=== PATIENT | female | born 1950 ===

== ENCOUNTER 2017-10-17 09:22 | Day surgery (SDC) | payer MEDICARE ==
[~2017-10-17] VITALS: Ht 167.6 cm; Wt 94.1 kg
[~2017-10-17 09:22] MED LIST: AMLO10 PO; HYDCHL12.5 PO; METO25ER PO; MICROZIDE12.5 MG PO; TRAM50 PO
== END 2017-10-17 12:14 | disposition home or self-care (01) ==
LOC: ORSCSDS 09:22
PROVIDERS: Internal Medicine Gastroenterology
PROC: 0DJD8ZZ Inspection of Lower Intestinal Tract, Via Natural or Artificial Opening Endoscopic (ICD-10-PCS; principal; 2017-10-17 10:45)
DX: Z12.11 Encounter for screening for malignant neoplasm of colon (principal); K57.30 Diverticulosis of large intestine without perforation or abscess without bleeding; K64.8 Other hemorrhoids; Z86.010 Personal history of colon polyps; I10 Essential (primary) hypertension; Z79.899 Other long term (current) drug therapy
CPT/HCPCS: J2405; J7120

== ENCOUNTER 2023-11-06 05:58 | Day surgery (SDC) | payer MEDICARE ==
[~2023-11-06] VITALS: Ht 167.6 cm; Wt 99.3 kg
[2023-11-06] VITALS (16 sets, daily range): BP systolic 100–197; BP diastolic 56–84
[~2023-11-06 05:58] MED LIST changes: +ATOR20 PO; +BISA10S; +CLARITIN5 MG PO; +DULO60 PO; +MELO7.5 PO; +Prinivil10 MG PO; +VITAMIN D310 MC4 PO
[2023-11-06] MEDS ORDERED: Acetaminophen 500 MG Tab PO SCH ×2 (06:15→08:00)
[2023-11-06] MEDS ORDERED: Vancomycin HCL 1,000 MG in NS 250 ML IV SCH ×3 (06:15→19:00)
[2023-11-06] MEDS ORDERED: Ropivacaine 0.5% HCl/Pf 123.125 MG,EPINEPHrine HCL 0.25 MG,Ketorolac Tromethamine 15 MG... INFIL SCH (06:15)
[2023-11-06] MEDS ORDERED: Lactated Ringer's 1,000 ML IV SCH ×2 (06:15→07:10)
[2023-11-06] MEDS ORDERED: OxyCODONE HCL 10 MG TABCR PO SCH (06:15)
[2023-11-06] MEDS ORDERED: Chlorhexidine Mouth Care 15 ML UDC MT SCH (06:15)
[2023-11-06] MEDS ORDERED: Tranexamic Acid 100 ML IV SCH (06:15)
[2023-11-06] MEDS ORDERED: CeFAZolin Sodium 2,000 MG in NS 100 ML IV SCH ×2 (06:15→16:00)
--- NOTE | 2023-11-06 06:53 | NUR ---
Ambulatory in Day Surgery History, Chart, Medications and Allergies reviewed before start of procedure. Pre-Op teaching done. Pt verbalizes understanding.
[2023-11-06] MEDS ORDERED: Magnesium Hydroxide Conc 10 ML UDC PO PRN (07:10)
[2023-11-06] MEDS ORDERED: HYDROmorphone HCl/Pf 1MG SYR IV PRN (07:10)
[2023-11-06] MEDS ORDERED: Prochlorperazine Edisylate 10 mg Vial IV PRN (07:15)
[2023-11-06] MEDS ORDERED: Ondansetron HCl 2 MG / ML 2ML Vial IV PRN ×2 (07:15→08:50)
[2023-11-06] MEDS ORDERED: Promethazine HCl 25 MG Tab PO PRN (07:15)
[2023-11-06] MEDS ORDERED: Metoclopramide HCl 5MG / ML 2ML Vial IV PRN (07:15)
[2023-11-06] MEDS ORDERED: OxyCODONE HCL 5 MG TAB PO PRN ×2 (07:15)
[2023-11-06] MEDS ORDERED: DiphenhydrAMINE HCL 25 MG Cap PO PRN (07:15)
[2023-11-06] MEDS ORDERED: Bisacodyl 10 MG Supp PR PRN (07:20)
[2023-11-06] MEDS ORDERED: VANCOMYCIN HCL IV SCH (07:25)
[2023-11-06] MEDS ORDERED: Vancomycin HCl 1000 MG ADDvantage XX ONE (07:30)
[2023-11-06] MEDS ORDERED: FentaNYL Citrate 50 MCG/ML 2 ML Injection ONE (07:35)
[2023-11-06] MEDS ORDERED: Midazolam HCl 1MG / ML 2ML Vial ONE ×2 (07:35→08:51)
[2023-11-06] MEDS ORDERED: Dexamethasone Sod Phos 10 MG/ML 1ML VIAL ONE (08:01)
[2023-11-06] MEDS ORDERED: Ketamine HCl 100 MG / ML 5ML Vial ONE (08:27)
[2023-11-06] MEDS ORDERED: FentaNYL Citrate 50 MCG/ML 2 ML Injection IV PRN ×3 (08:50)
[2023-11-06] MEDS ORDERED: Metoprolol Succinate 25 MG TABCR PO SCH (09:00)
[2023-11-06] MEDS ORDERED: Loratadine 10 MG Tab PO SCH (09:00)
[2023-11-06] MEDS ORDERED: Cholecalciferol 1000 Unit Tablet (=25MCG) PO SCH (09:00)
[2023-11-06] MEDS ORDERED: Lisinopril 20 MG Tab PO SCH (09:00)
[2023-11-06] MEDS ORDERED: Docusate Sodium 100 MG Cap PO SCH (09:00)
[2023-11-06] MEDS ORDERED: Atorvastatin 10 MG Tab PO SCH (09:00)
[2023-11-06] MEDS ORDERED: ePHEDrine Sulfate 50 MG/ML 1ML Injection ONE (09:07)
[2023-11-06] MEDS ORDERED: Ondansetron HCl 2 MG / ML 2ML Vial ONE (09:34)
[2023-11-06] MEDS ORDERED: Vancomycin HCl 1000 MG ADDvantage ONE (09:39)
--- NOTE | 2023-11-06 11:14 | NUR ---
PATIENT JUST ARRIVED TO THE FLOOR FROM PACU TODAY. POD 0 RIGHT TOTAL HIP - POSTERIOR PATIENT IS DROWSY BUT IS ANSWERING QUESTIONS APPROPRIATELY. PATIENT HAD A SPINAL DURING THE PROCEDURE AND IS NUMB FROM THE KNEES DOWN, BUT IS ABLE TO WIGGLE HER TOES. PEDAL PULSES ARE STRONG AND WARM TO TOUCH. SHE HAS X3 GAUZE WITH FOAM TAPE INCISIONS ON THE RIGHT HIP THAT ARE C/D/I. POLAR PACK IS PLACED ON HER RIGHT HIP. SHE IS TOLERATING SMALL AMOUNTS OF PO INTAKE AT BEDSIDE WITH CALL LIGHT IN REACH. PETR IS AT BEDSIDE.
[2023-11-06] MEDS ORDERED: Ketorolac Tromethamine 15mg Vial IV SCH (12:00)
[2023-11-06] MEDS ORDERED: OXAYDO5 M1 PO (12:12)
[2023-11-06] MEDS ORDERED: PROM25 PO (12:13)
[2023-11-06] MEDS ORDERED: SULTRIDS PO (12:14)
[2023-11-06] MEDS ORDERED: XARELTO20 MG PO (12:14)
--- NOTE | 2023-11-06 17:28 | NUR ---
SHIFT SUMMARY: POD 0 RIGHT TOTAL HIP - POSTERIOR PATIENT IS A&OX4. VS ARE WNL AND IS ON RA. PAIN IS MANAGED SO FAR THIS SHIFT WITH IV TORADOL AND PO TYLENOL. HER RIGHT HIP HAS X3 GAUZE WITH FOAM TAPE DRESSINGS THAT ARE C/D/I. SHE DENIES NUMBNESS OR TINGLING THROUGHOUT ALL EXTREMITIES. PATIENT DID WORK WITH PHYSICAL THERAPY TODAY AND IS A MINIMAL ASSIST WITH FWW AND GAIT BELT. PATIENT HAS VOIDED TWICE WITH SCANT AMOUNT OF OUTPUT. PATIENT WAS JUST BLADDER SCANNED WITH 168 ML AT THIS TIME AND WILL BE MONITORED PER PROTOCOL. PATIENT IS TOLERATING PO INTAKE AND DENIES NAUSEA OR VOMITING AT THIS TIME. SHE IS SITTING IN THE RECLINER CHAIR WITH LEGS ELEVATED AND CALL LIGHT IN REACH AND POLAR PACK IN PLACE.
[2023-11-07 00:01] VITALS: BP 155/74
[2023-11-07 03:22] VITALS: BP 147/72
[2023-11-07 04:46] LABS: BASOPHILS ABSOLUTE AUTO 0.02 K/mm3 (0.00-0.23); BASOPHILS PERCENT AUTO 0 % (0-2); EOSINOPHILS PERCENT AUTO 0 % (0-6); Hematocrit 33.2 % (33.0-51.0); Hemoglobin 11.6 g/dL (11.5-16.0); IMMATURE GRAN ABSOLUTE AUTO 0.07 K/mm3 (0.00-0.10); IMMATURE GRAN PERCENT AUTO 1 % (0-1); LYMPHOCYTES ABSOLUTE AUTO 0.95 K/mm3 (0.84-5.20); LYMPHOCYTES PERCENT AUTO 7 % (21-46); MONOCYTES ABSOLUTE AUTO 0.81 K/mm3 (0.16-1.47); MONOCYTES PERCENT AUTO 6 % (4-13); Mean Corpuscular HGB 34.2 pg (26.0-34.0); Mean Corpuscular HGB Conc 34.9 g/dL (31.5-36.5); Mean Corpuscular Volume 98 fL (80-100); Mean Platelet Volume 10.1 fL (9.1-12.4); NEUTROPHILS ABSOLUTE AUTO 12.46 K/mm3 (1.96-9.15); NEUTROPHILS PERCENT AUTO 87 % (41-73); Platelet Count 149 K/mm3 (150-400); RDW Coefficient Variation 12.3 % (11.7-14.2); RDW Standard Deviation 44.8 fL (35.1-46.3); Red Blood Cell Count 3.39 M/mm3 (3.80-5.20); White Blood Cell Count 14.31 K/mm3 (4.00-11.30)
--- NOTE | 2023-11-07 04:54 | NUR ---
SHIFT SUMMARY POD 1 R POSTERIOR PAYAM. NO ACUTE CHANGES OVERNIGHT. VSS. TOLERATING ORALS. AMBULATES USING FWW c GB & SBA. VOIDING IND. INCISION SITE x3 c GAUZE/PRESSURE TAPE C/D/I. PT REPORTS PAIN TOLERABLE, MEDICATED PER EMAR & POLAR PACK IN USE. ANTICIPATED TO WORK WITH OT THEN DISCHARGE LATER TODAY. CALL LIGHT IN REACH, BED IN LOWEST POSITION, WILL REPORT TO DAY RN.
[2023-11-07 05:33] LABS: Bun/Creatinine Ratio 31.7 (12.0-20.0); Calcium, Blood 8.9 mg/dL (8.5-10.1); Creatinine, Blood 1.23 mg/dL (0.40-1.00); Magnesium, Blood 1.6 mg/dL (1.6-2.4); Potassium, Blood 4.7 mmol/L (3.5-5.5)
[2023-11-07 07:14] VITALS: BP 143/69
[2023-11-07] MEDS ORDERED: Rivaroxaban 10 MG Tab PO SCH (09:00)
[2023-11-07] MEDS ORDERED: Trimethoprim/Sulfamethoxazole DS Tab PO SCH (09:00)
--- NOTE | 2023-11-07 09:43 | NUR ---
DISCHARGE NOTE: PATIENT AND WERE EDUCATED ON DISCHARGE INSTRUCTIONS. BOTH VERBALIZED UNDERSTANDING OF INSTRUCTIONS AND HAD NO FURTHER QUESTIONS AT THIS TIME. IV WAS TAKEN OUT AND WNL. PATIENTS PHENERGAN PERSCRIPTION WAS FAXED TO THEIR PREFERRED PHARMACY WHICH IS [facility]. PAIN IS MANAGED WITH PO PAIN MEDS. DR. LANE CHANGED THE PATIENTS RIGHT HIP DRESSING WITH X2 AQUACELS THAT ARE C/D/I. SHE DENIES NUMBNESS OR TINGLING THROUGHTOUT ALL EXTREMITIES. SHE IS A SBA WITH FWW AND GAIT BELT. PATIENT IS TOLERATING PO INTAKE AND IS VOIDING. PATIENT IS DRESSED AND HAS PERSONAL ITEMS IN THE ROOM GATHERED. PATIENT IS BEING WHEELCHAIRED OUT TO HUSBANDS CAR TO BE TAKEN HOME.
== END 2023-11-07 09:44 | disposition home or self-care (01) ==
LOC: ORSCMMR 05:58 → ORD 07:30 → ORSCMMR 07:30 → SURS 10:43 → ORSCMMR 11-07 09:44
PROVIDERS: Orthopaedic Surgery
PROC: 0SR90JA Replacement of Right Hip Joint with Synthetic Substitute, Uncemented, Open Approach (ICD-10-PCS; principal; 2023-11-06 07:30)
DX: M16.11 Unilateral primary osteoarthritis, right hip (principal); I10 Essential (primary) hypertension; Z79.899 Other long term (current) drug therapy; Z68.35 Body mass index [BMI] 35.0-35.9, adult
CPT/HCPCS: 36415; 72170; 80048; 83735; 85025; 97110; 97116; 97162; 97166; 97530; 97535; A9270; C1713; C1776; J0171; J0690; J0735; J1100; J1885; J2250; J2405; J2795; J3010; J3370; J7050; J7120